=== PATIENT | male | born 1975 | race Caucasian/White ===

== ENCOUNTER → 2017-03-09 | Outpatient (CLI) | payer OTHER ==
[~2017-03-09] MED LIST: CLIN300C86 PO; OMEP40CA52 PO
--- NOTE | 2017-03-09 10:01 | DI ---
EXAM: CT SINUSES W/O CONTRAST [place] [facility] [place]ISON: None available. HISTORY: ITS.REASON: R51 HEADACHE; J01.96 LEFT SINUS PRESSURE TECHNIQUE: Axial images were obtained through the paranasal sinuses and reconstructed in thinner axial sections, and in sagittal and coronal re-formations. This study was reviewed in bone, lung, and soft tissue windows. The current CT scan was performed using radiation dose-reduction techniques. FINDINGS: There are ovoid structures seen at the superior aspect and inferior aspect of the right maxillary sinus likely representing small mucus retention cysts or polyps. There may be 2at the upper aspect and one at the inferior aspect. There may be two small mucus retention cysts or polyps at the inferior left maxillary sinus with minimal mucoperiosteal wall thickening. There is left to right septal deviation. The nasal turbinates appear unremarkable. The frontal sinus, ethmoid sinus, and sphenoid sinuses are clear. What is able to be seen of the mastoid air cells are clear. Review of the soft tissue windows, shows no underlying soft tissue abnormalities. The base of the brain is unremarkable. The tonsils are not completely imaged IMPRESSION: 1. Small mucus retention cysts or polyps in the maxillary sinuses with minimal mucoperiosteal wall thickening. .
== END ==
LOC: IMA 07:29
PROVIDERS: ATTEND Physician Assistant
DX: J34.1 Cyst and mucocele of nose and nasal sinus (principal); J34.89 Other specified disorders of nose and nasal sinuses; R51 Headache